=== PATIENT | male | born 1945 | race Two or more races ===

== ENCOUNTER 2017-12-26 16:22 | Emergency (ER) | payer SELFPAY ==
[2017-12-26] MEDS ORDERED: NS 1,000 ML IV ONE ×2 (17:14→18:46)
--- NOTE | 2017-12-26 17:25 | EDPHY ---
H & P Time Seen by Provider: 12/26/17 16:39 HPI/ROS: This patient is [place]ian-speaking only with translation provided by the translation service-[employer]. Patient's son also provides some translation with history of 4 days of UTI symptoms consisting of dysuria, frequency and urgency. He has also had some right flank pain 6/10 intensity and some suprapubic discomfort. He states the suprapubic discomfort is 5/10 intensity. He has had fevers and some chills but took Tylenol today at noon reports that his fever responded to the Tylenol. No other exacerbating factors are noted. He reports a history of a"kidney problems"describing elevated creatinine but is uncertain of any other details. He also describes 1 kidney being larger than the other. ROS: Constitutional: Fevers and chills HEENT: No complaints line pulmonary: No complaints new line cardiovascular: No lightheadedness GI: No nausea or vomiting. : He denies any particular difficulty passing stream of urine. No urethral discharge. He denies testicular pain. He has noticed testicular swelling Integumentary: No skin rash Neuro: No complaints 10 point review of symptoms is performed and otherwise negative with exception of pertinent positives and negatives listed in HPI and ROS Past Medical/Surgical History: Chronic kidney disease of unknown type Unknown baseline creatinine Social History: He does not drink alcohol. No drug use. He is visiting his son and lives in [facility] normally. He has been in the [place] 1 [place]. Smoking Status: Never smoked Physical Exam: General Appearance: Pleasant male Alert, no distress. Eyes: Pupils equal and round no pallor or injection. ENT, Mouth: Mucous membranes moist. Respiratory: There are no retractions, lungs are clear to auscultation. Cardiovascular: Regular rate and rhythm. No murmur gallop rub Gastrointestinal: Normoactive, soft, patient has a reducible mildly tender hernia -Spigelian just left of the abdominal rectus muscles with no overlying erythema or warmth to touch. There is no suprapubic tenderness or distention of the bladder on exam. Back: No CVA tenderness this time The : No testicular tenderness or swelling. Circumcised penis with no urethral discharge Neurological: GCS 15 Skin: Warm and dry, no rashes. Musculoskeletal: Neck is supple nontender. Extremities are symmetrical, full range of motion. Psychiatric: Mood and affect are normal DIFFERENTIAL DIAGNOSIS: After history and physical exam differential diagnosis was considered for pyelonephritis, cystitis, prostatitis, Constitutional: Initial Vital Signs Temperature (C) 37.5 C 12/26/17 16:38 Heart Rate 100 12/26/17 16:38 Respiratory Rate 18 12/26/17 16:38 Blood Pressure 121/76 H 12/26/17 16:38 O2 Sat (%) 92 12/26/17 16:38 O2 Delivery Mode Room Air Allergies/Adverse Reactions: No Known Allergies Allergy (Unverified 12/26/17 16:35) Home Medications: Medication Instructions Recorded Allopurinol 12/26/17 Budesonide 12/26/17 Cephalexin [Keflex (*)] 500 mg PO TID #30 cap 12/26/17 Miflonide 12/26/17 MDM/Departure - MDM Diagnostics: POC UA dip reveals 2+ protein, 2+ blood and 3+ leukocytes. Urine micro and culture are pending CBC is notable for leukocytosis. Basic metabolic panel reveals BUN of 37 creatinine of 2.2 and normal electrolytes. Medications Given: Discontinued Medications Acetaminophen (Tylenol) 650 mg PO EDNOW ONE Stop: 12/26/17 19:21 Last Admin: 12/26/17 19:22 Dose: 650 mg Sodium Chloride (Ns) 1,000 mls @ 0 mls/hr IV EDNOW ONE; Wide Open PRN Reason: Protocol Stop: 12/26/17 17:15 Last Admin: 12/26/17 17:56 Dose: 1,000 mls Ceftriaxone Sodium/Dextrose (Rocephin 1 Gm (Premix)) 50 mls @ 100 mls/hr IV EDNOW ONE PRN Reason: Protocol Stop: 12/26/17 17:45 Last Admin: 12/26/17 17:56 Dose: 50 mls Sodium Chloride (Ns) 1,000 mls @ 0 mls/hr IV ONCE ONE; Wide Open PRN Reason: Protocol Stop: 12/26/17 18:47 Last Admin: 12/26/17 19:04 Dose: 1,000 mls ED Course/Re-evaluation: IV normal saline bolus x2 L Ceftriaxone IV 1 g Patient developed low-grade fever 37.8 while here treated with Tylenol. I consult Dr. Braxton, urologist amortization schedule clerk for [facility] regarding this patient with chronic kidney disease. Given his current clinical presentation lab findings, she feels it is safe and appropriate for him to follow up with primary care physician this week for recheck basic metabolic panel at that time. Discussion: Patient here with flank ache dysuria pyuria and leukocytosis consistent with pyelonephritis. He has a normal lactate. His creatinine of 2 was likely around his baseline with chronic kidney disease given normal electrolytes, no vomiting or other red flag findings. I did offer admission but feel it is safe for him to be discharged home a son and patient for this plan with close follow up with Dr. Hirsch, on-call outpatient physician this week. The understand the need to return emergency department should the patient develop vomiting or other concerns despite treatment plan of Keflex, continue his allopurinol and close follow-up. - Depart Disposition: Home, Routine, Self-Care Clinical Impression: Acute urinary tract infection Chronic kidney disease Qualifiers: Chronic kidney disease stage: unspecified stage Qualified Code(s): N18.9 - Chronic kidney disease, unspecified Condition: Good Instructions: Urinary Tract Infection in Men (ED) Additional Instructions: Diagnosis: Acute urinary tract infection 2. Chronic kidney disease Plan: Drink plenty fluids Keflex antibiotic as prescribed He have a urinary culture pending at [facility]. There is result should be back in 2 days so the primary care physician follow-up with can check this. Call Dr. Nur or Cecile Horner in [place]: To arrange follow-up for later this week with plan to also have a recheck basic metabolic panel to recheck his creatinine level. Return to the emergency department if he develops vomiting, high fevers or other concerns. Prescriptions: Cephalexin [Keflex (*)] 500 mg PO TID #30 cap Referrals: NONE *PRIMARY CARE P,. [Primary Care Provider] - As per Instructions Steve Nur MD [[facility] Primary Care Provider] - As per Instructions Print Language: [place]ian
[2017-12-26 19:11] LABS: PLATELET COUNT 246 10^3/uL (150-400)
[2017-12-26] MEDS ORDERED: ACETAMINOPHEN 325 MG TAB ONE (19:19)
[2017-12-26] MEDS ORDERED: ACETAMINOPHEN 325 MG TAB PO ONE (19:20)
[2017-12-26 19:25] VITALS: BP 155/100
== END 2017-12-26 19:49 | disposition home or self-care (01) ==
LOC: CED 16:22
DX: N39.0 Urinary tract infection, site not specified (principal); N18.9 Chronic kidney disease, unspecified
CPT/HCPCS: 80048-PO; 83605-PO; 96365; J0696